=== PATIENT | male | born 1960 | race African-American/Black ===

== ENCOUNTER → 2017-09-24 | Outpatient (CLI) | payer BC ==
[2017-09-24] MEDS: BUPIVACAINE 0.5% 50 ML VIAL. IJ (09:22)
[2017-09-24] MEDS: methylPREDNISolone ACETATE 80 MG/ML VIAL. IM (09:23)
[2017-09-24] MEDS: LIDOCAINE WITH 8.4% SOD BICARB 3 ML DISP.SYRIN. INJ (09:23)
[2017-09-24] MEDS: IOHEXOL 300 MG/ML 10ML VIAL. IJ (09:23)
== END | disposition home or self-care (01) ==
LOC: RAD 08:29
DX: M25.552 Pain in left hip (principal); Z79.52 Long term (current) use of systemic steroids; Z79.899 Other long term (current) drug therapy
CPT/HCPCS: 20605; 77002; J1040; J3490; Q9967